=== PATIENT | female | born 1975 | race Caucasian/White ===

== ENCOUNTER 2017-03-19 19:22 | Emergency (ER) | payer SELFPAY ==
[2017-03-19] MEDS ORDERED: LIDOCAINE 2%/EPINEPHRINE 1:100000 (50 ML MD VIAL) INF ONE (19:33)
[2017-03-19] MEDS ORDERED: KETOROLAC TROMETHAMINE 30 MG/1 ML VIAL IVPUSH ONE (19:41)
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
[2017-03-19 19:51] VITALS: TEMP 99; BMI 22.6
[2017-03-19 20:46] VITALS: BP 105/58; PULSE 80
== END 2017-03-19 22:27 | disposition home or self-care (01) ==
LOC: FER 19:22
PROC: 3E0333Z Introduction of Anti-inflammatory into Peripheral Vein, Percutaneous Approach (ICD-10-PCS; principal; 2017-03-19)
DX: S43.101A Unspecified dislocation of right acromioclavicular joint, initial encounter (principal); V19.3XXA Pedal cyclist (driver) (passenger) injured in unspecified nontraffic accident, initial encounter; Y93.55 Activity, bike riding; Y92.89 Other specified places as the place of occurrence of the external cause
CPT/HCPCS: 71010-TC; 73030-TC-RT; 99283-25

== ENCOUNTER → 2022-11-29 | Day surgery (SDC) | payer OTHER | END | disposition home or self-care (01) | LOC: FRADUS-SUR 11:55 | PROVIDERS: ATTEND Internal Medicine | PROC: 0HBT3ZX Excision of Right Breast, Percutaneous Approach, Diagnostic (ICD-10-PCS; principal; 2022-11-29) | DX: N60.31 Fibrosclerosis of right breast (principal); N64.89 Other specified disorders of breast; N63.10 Unspecified lump in the right breast, unspecified quadrant | CPT/HCPCS: 19085; 77065-TC; 88305-TC; 88342-TC; A4648; A9579; C1887 ==